=== PATIENT | female | born 1995 | race Asian ===

== ENCOUNTER 2018-07-13 13:39 | Emergency (ER) | payer OTHER ==
[2018-07-13 13:47] VITALS: BMI 26.5
[2018-07-13] MEDS ORDERED: ONDANSETRON *ODT* 4 MG TABLET SL ONE (14:05)
[2018-07-13] MEDS ORDERED: SODIUM CHLORIDE 1,000 ML IV STA (14:05)
--- NOTE | 2018-07-13 14:10 | PDOC ---
History of Present Illness - General Chief Complaint: Pain, Acute Stated Complaint: Pain, Acute Time Seen by Provider: 07/13/18 13:51 History Source: Patient Exam Limitations: No Limitations - History of Present Illness Initial Comments: 07/13/18 14:06 Pt is a 23yo f with PMH of asthma presenting to ED with complaints of urinary frequency with L sided flank pain that started yesterday. Pt says she felt like she had to urinate every 10 seconds. She states the pain in her back went away overnight but came back in the morning. Pain is an achy pain 15/10 radiates from L flank to L groin, constant, alleviated by sitting down. Pt admits to hot flashes, nausea, dysuria, urinary frequency. She denies hematuria, fevers, vaginal bleeding/discharge, abdominal pain, v/d/c, headaches. LMP was June 16, she is sexually active, denies history of STDs or prior kidney stones. PCP: [facility] PMH: asthma PSH: none Meds: albuterol inhaler social: denies allergies: denies Past History - Past Medical History Allergies/Adverse Reactions: Allergies Allergy/AdvReac Type Severity Reaction Status Date / Time No Known Allergies Allergy Verified 07/13/18 13:44 Home Medications: Ambulatory Orders Albuterol Sulfate Inhaler - [Ventolin Hfa Inhaler -] 1 - 2 inh PO QID 07/13/18 Oxycodone HCl/Acetaminophen [Percocet 5-325 mg Tablet] 1 tab PO Q6H #20 tablet MDD 4 tablets 07/13/18 Tamsulosin HCl [Flomax] 0.4 mg PO DAILY #7 capsule 07/13/18 Asthma: Yes COPD: No - Suicide/Smoking/Psychosocial Hx Smoking History: Never smoked Review of Systems - Review of Systems Constitutional: No: Fever, Weakness HEENTM: No: Eye Pain, Recent change in vision Respiratory: No: Cough, Shortness of Breath Cardiac (ROS): No: Chest Pain, Palpitations, Syncope ABD/GI: Yes: Nausea. No: Constipated, Diarrhea, Poor Appetite, Vomiting, Abdominal cramping, Tarry Stools : Yes: See HPI, Frequency, Flank Pain, Urgency. No: Dysuria, Hematuria Musculoskeletal: Yes: See HPI. No: Joint Pain, Muscle Weakness, Neck Pain Neurological: No: Headache, Numbness, Paresthesia, Tingling, Weakness *Physical Exam - Vital Signs Last Vital Signs Temp Pulse Resp BP Pulse Ox 98 F 80 22 H 111/81 98 07/13/18 13:46 07/13/18 13:46 07/13/18 13:46 07/13/18 13:46 07/13/18 13:46 - Physical Exam Comments: 07/13/18 14:13 pt sitting in chair, highly uncomfortable, holding L flank General Appearance: Yes: Nourished, Appropriately Dressed, Severe Distress HEENT: positive: EOMI, MATTY, Pharynx Normal, Hearing Grossly Normal. negative: Photophobia, Scleral Icterus (R), Scleral Icterus (L) Gastrointestinal/Abdominal: positive: Normal Bowel Sounds, Soft. negative: Distended, Guarding, Rebound, Tenderness Musculoskeletal: positive: CVA Tenderness (L). negative: CVA Tenderness (R), Decreased Range of Motion, Vertebral Tenderness Extremity: positive: Normal Capillary Refill. 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 Vitals: tachypnea at 22. normotensive, normocardic PE: L flank tenderness. No abdominal tenderness DDx: nephrolithiasis (septic v. obstructive v. nonobstructive), pyelonephritis, uti, High clinical suspicion for nephrolithiasis. Pt is highly uncomfortable, complaining of flank pain. Pyelo also on differential. UA, Ucx, Upreg ordered in triage. Will add on CBC, CMP, Zofran, IVF. Awaiting upreg. Will give Toradol if negative. If is negative will order spiral ct. If positive, will order ultrasound and perform pelvic exam. Will give pt Tylenol for pain if that is the case. -Low suspicion for ovarian cause of pain: TOA, torsion, ectopic given pt is not complaining of pelvic pain, vaginal bleeding/discharge. Low suspicion for abdominal causes: colitis, appendicitis cholecystitis given location of pain and lack of abdominal complaints other than nausea. 07/13/18 14:25 Upreg negative. Will give toradol and order spiral ct. 07/13/18 14:27 UA negative for infection, can rule out septic stone and pyelonephritis. 07/13/18 15:08 All labs wnl. Pt feeling better after Toradol. 3mm obstructing stone at L UVJ with mild hydroureter and stones in kidney. Called Dr. Tate, agreed with dc pt home with Flomax and pain control. Will see pt in office. Pt hemodynamically stable, afebrile, asymptomatic. safe for dc home. Pt agreed to plan and understood return precautions. *DC/Admit/Observation/Transfer Diagnosis at time of Disposition: Nephrolithiasis - Discharge Dispostion Disposition: HOME Condition at time of disposition: Improved - Prescriptions Prescriptions: Oxycodone HCl/Acetaminophen [Percocet 5-325 mg Tablet] 1 tab PO Q6H #20 tablet MDD 4 tablets Tamsulosin HCl [Flomax] 0.4 mg PO DAILY #7 capsule - Referrals Referrals: Elizabeth Villatoro MD [Primary Care Provider] - Steven Torre MD [Staff Physician] - - Patient Instructions Printed Discharge Instructions: DI for Kidney Stones Additional Instructions: You were seen here today for evaluation of flank pain. Your blood tests were normal. The CT scan showed that you have a stone The stone may take a couple days to pass. I have sent a prescription over to your pharmacy for pain; Percocet, please take if your pain is not well controlled by ibuprofen. You can take ibuprofen up to 600mg every 6 hours as needed for pain. I have also sent Flomax for you to take as well. Try to stay well hydrated! Drink lots of water, try to stay away from sodas and coffee for now. I recommend that you follow up with your doctor and a urologist within 1 week. You can call Dr. Malcolm and let him know that he spoke to Dr. Walton in the emergency room when you were here so that you can be scheduled to see him in the next few days. Come back to the emergency room if: your pain gets worse, you have a lot of blood in your urine, you start having abdominal pain or if any new concerning symptom develops. Thank you - Post Discharge Activity
[2018-07-13 14:13] LABS: URINE APPEARANCE SLCLOUDY; URINE BILIRUBIN NEGATIVE (<2.0 mg/dL); URINE COLOR LTYELLOW; URINE GLUCOSE (UA) NEGATIVE (NEGATIVE); URINE KETONE NEGATIVE (NEGATIVE); URINE LEUK ESTERASE NEGATIVE (NEGATIVE); URINE NITRITE NEGATIVE (NEGATIVE); URINE PROTEIN NEGATIVE (NEGATIVE); URINE UROBILINOGEN NEGATIVE mg/dL (0.2-1.0)
[2018-07-13 14:16] LABS: HCG,QUALITATIVE URINE Negative
[2018-07-13] MEDS ORDERED: KETOROLAC TROMETHAMINE 30 MG/1 ML VIAL IVPUSH ONE (14:18)
[2018-07-13 14:19] LABS: EPI CELLS RARE /HPF (FEW)
[2018-07-13] MEDS ORDERED: ONDANSETRON 4 MG/2 ML VIAL ONE (14:23)
[2018-07-13] MEDS ORDERED: KETOROLAC TROMETHAMINE 30 MG/1 ML VIAL ONE (14:23)
[2018-07-13 14:26] LABS: BASO % 0.9 % (0-2.0); EOS % 3.3 % (0-4.5); HEMATOCRIT 39.4 % (32.4-45.2); HEMOGLOBIN 12.8 GM/dL (10.7-15.3); LYMPH % 50.2 % (8-40); MCH 27.2 pg (25.7-33.7); MCHC 32.4 g/dl (32.0-36.0); MEAN CELL VOLUME 83.8 fl (80-96); MEAN PLT VOLUME 9.2 fl (7.5-11.1); MONO % 6.8 % (3.8-10.2); NEUT % 38.8 % (42.8-82.8); PLATELET COUNT 286 K/MM3 (134-434); RDW 13.6 % (11.6-15.6); WHITE BLOOD COUNT 8.6 K/mm3 (4.0-10.0)
[2018-07-13] MEDS ORDERED: ONDANSETRON 4 MG/2 ML VIAL IVPUSH ONE (14:26)
[2018-07-13 14:50] LABS: ALBUMIN 4.1 g/dl (3.4-5.0); ALK PHOS 54 U/L (45-117); ANION GAP 8 MMOL/L (8-16); BILIRUBIN,TOTAL 0.4 mg/dL (0.2-1); BLOOD UREA NITROGEN 12 mg/dL (7-18); CHLORIDE 106 mmol/L (98-107); CO2 25 mmol/L (21-32); CREATININE 0.6 mg/dL (0.55-1.3); GLUCOSE,RANDOM 88 mg/dL (74-106); SGOT/AST 19 U/L (15-37); SGPT/ALT 21 U/L (13-61); SODIUM 138 mmol/L (136-145); TOT PROT 7.7 g/dl (6.4-8.2)
--- NOTE | 2018-07-13 16:25 | PDOC ---
Attending Attestation - Resident Resident Name: Gia Walton - ED Attending Attestation I have performed the following: I have examined & evaluated the patient, The case was reviewed & discussed with the resident, I agree w/resident's findings & plan, Exceptions are as noted - HPI HPI: 07/13/18 16:16 The patient is a 23 year old female with a significant PMH of asthma who presents to the emergency department with nausea, dysuria, urinary frequency and left sided flank pain that started overnight. Patient states the left flank pain is radiating to the left groin and is better with moving around Patient denies any history of STDs or kidney stones. Denies vaginal DC. The patient denies fever, chills, nausea, vomit, diarrhea and constipation. Denies urgency or hematuria. Allergies: NKA Past surgical history: None reported. Social history: No reported alcohol, drug, or cigarette use. PCP: Dr. Villatoro - Physicial Exam PE: 07/13/18 16:17 GENERAL: Awake, alert, and fully oriented, in no acute distress HEAD: No signs of trauma EYES: PERRLA, EOMI, sclera anicteric, conjunctiva clear ENT: Auricles normal inspection, hearing grossly normal, nares patent, oropharynx clear without exudates. Moist mucosa NECK: Normal ROM, supple, no lymphadenopathy, JVD, or masses LUNGS: Breath sounds equal, clear to auscultation bilaterally. No wheezes, and no crackles HEART: Regular rate and rhythm, normal S1 and S2, no murmurs, rubs or gallops ABDOMEN: Soft, nontender, non distended, normoactive bowel sounds. No guarding , no rebound. No masses. No CVAT. EXTREMITIES: Normal range of motion, no edema. No clubbing or cyanosis. No cords, erythema, or tenderness NEUROLOGICAL: Normal speech, cranial nerves intact, 5/5 strength in all 4 extremities, normal sensation to light touch in all 4 extremities, normal gait, normal tone SKIN: Warm, Dry, normal turgor, no rashes or lesions noted. - Medical Decision Making 07/13/18 16:20 23yo F presents with L sided flank pain consistent with renal colic. UA with blood, no infection. CTAP with 3mm obstructing stone in L UVJ. Pain well controlled with toradol. Case discussed with Dr. Lechuga by Dr Walton, he will see her as outpt. I discussed the physical exam findings, ancillary test results and final diagnoses with the patient. I answered all of the patient's questions. The patient was satisfied with the care received and felt comfortable with the discharge plan and treatment plan. The patient will call their primary care physician within 24 hours to arrange follow-up and will return to the Emergency Department with any new, persistent or worsening symptoms.
[2018-07-13 16:56] VITALS: BP 118/85; PULSE 76; TEMP 98.1
== END 2018-07-13 16:56 | disposition home or self-care (01) ==
LOC: JER 13:39
PROC: 3E0333Z Introduction of Anti-inflammatory into Peripheral Vein, Percutaneous Approach (ICD-10-PCS; principal; 2018-07-13)
PROC: 3E033GC Introduction of Other Therapeutic Substance into Peripheral Vein, Percutaneous Approach (ICD-10-PCS; 2018-07-13)
PROC: 3E0337Z Introduction of Electrolytic and Water Balance Substance into Peripheral Vein, Percutaneous Approach (ICD-10-PCS; 2018-07-13)
DX: N20.0 Calculus of kidney (principal); J45.909 Unspecified asthma, uncomplicated
CPT/HCPCS: 36415; 74176; 80053; 81003; 81015; 84703; 85025; 87086; 99284-25; J7030

== ENCOUNTER 2019-01-02 23:33 | Emergency (ER) | payer OTHER ==
[2019-01-02 23:42] VITALS: BMI 37.5
[2019-01-03 01:34] LABS: HCG,QUALITATIVE URINE Negative
[2019-01-03 01:35] LABS: EPI CELLS 7.1 /HPF (0-5); URINE APPEARANCE CLEAR; URINE BACTERIA 309.3 /hpf (NEGATIVE); URINE BILIRUBIN NEGATIVE (NEGATIVE); URINE CASTS 5 /hpf (0-8); URINE COLOR YELLOW; URINE GLUCOSE (UA) NEGATIVE (NEGATIVE); URINE KETONE TRACE (NEGATIVE); URINE LEUK ESTERASE TRACE (NEGATIVE); URINE NITRITE NEGATIVE (NEGATIVE); URINE PROTEIN NEGATIVE (NEGATIVE); URINE RBC 3 /hpf (0-4); URINE WBC 3 /hpf (0-5)
--- NOTE | 2019-01-03 01:45 | PDOC ---
History of Present Illness - General Chief Complaint: Pain, Acute Stated Complaint: STOMACH PAIN Time Seen by Provider: 01/03/19 01:10 History Source: Patient - History of Present Illness Initial Comments: 01/03/19 01:40 23 year old female with right pelvic and right lower abdominal pain. patient reports that she started to have nausea with constipation 4 days ago now with diarrhea. reports feelings chills and pain radiating to RLQ and periumbilical area. denies urinary symptoms, uri symptoms. cough, dizziness, chest pain LMP: 09/2018 Past History - Past Medical History Allergies/Adverse Reactions: Allergies Allergy/AdvReac Type Severity Reaction Status Date / Time No Known Allergies Allergy Verified 07/13/18 13:44 Home Medications: Ambulatory Orders Albuterol Sulfate Inhaler - [Ventolin Hfa Inhaler -] 1 - 2 inh PO QID 07/13/18 Oxycodone HCl/Acetaminophen [Percocet 5-325 mg Tablet] 1 tab PO Q6H #20 tablet MDD 4 tablets 07/13/18 Tamsulosin HCl [Flomax] 0.4 mg PO DAILY #7 capsule 07/13/18 Asthma: Yes COPD: No - Suicide/Smoking/Psychosocial Hx Smoking History: Never smoked Hx Alcohol Use: No Drug/Substance Use Hx: No Review of Systems - Review of Systems Able to Perform ROS?: Yes Is the patient limited Maltese proficient: No Constitutional: Yes: Chills. No: Symptoms Reported, See HPI, Diaphoresis, Fever , Loss of Appetite, Malaise, Night Sweats, Weakness, Weight Stable, Unintentional Wgt. Loss, Unexplained wgt Loss, Other ABD/GI: Yes: Diarrhea, Nausea, Abdominal cramping. No: Symptoms Reported, See HPI, Abdominal Distended, Abd. Pain w/ defecation, Blood Streaked Bowels, Constipated, Difficulty Swallowing, Poor Appetite, Poor Fluid Intake, Rectal Bleeding, Vomiting, Indigestion, Tarry Stools, Other : No: Symptoms Reported, See HPI, Burning, Dysuria, Discharge, Frequency, Flank Pain, Hematuria, Incontinence, Pain, Urgency, Testicular Mass, Testicular Swelling, Lesions, Testicular Pain, Other *Physical Exam - Vital Signs Last Vital Signs Temp Pulse Resp BP Pulse Ox 98.3 F 76 20 118/68 100 01/02/19 23:39 01/02/19 23:39 01/02/19 23:39 01/02/19 23:39 01/02/19 23:39 - Physical Exam General Appearance: Yes: Appropriately Dressed Respiratory/Chest: positive: Lungs Clear, Normal Breath Sounds Cardiovascular: positive: Regular Rhythm, Regular Rate Gastrointestinal/Abdominal: positive: Normal Bowel Sounds, Tender (RLQ), Soft, Tenderness Musculoskeletal: positive: Normal Inspection Extremity: positive: Normal Capillary Refill, Normal Inspection, Normal Range of Motion Integumentary: positive: Normal Color, Dry, Warm Neurologic: positive: Fully Oriented, Alert, Normal Mood/Affect ED Treatment Course - LABORATORY CBC & Chemistry Diagram: 01/03/19 02:10 01/03/19 02:10 - ADDITIONAL ORDERS Additional order review: Laboratory Results 01/03/19 01:23 Urine HCG, Qual Negative - RADIOLOGY Radiology Studies Ordered: Category Date Time Status TRANSVAGINAL ULTRASOUND US [US] Stat Ultrasound 01/03/19 01:27 Ordered Progress Note - Progress Note Progress Note: A: abdominal pain P: TVUS: negative UA urine pain control IVF anti-nausea medication. Medical Decision Making - Medical Decision Making 01/03/19 02:00 TVUS: no acute findings. 01/03/19 05:00 CTAP negative. liekly gastroenteritis *DC/Admit/Observation/Transfer Diagnosis at time of Disposition: Abdominal pain Qualifiers: Abdominal location: right lower quadrant Qualified Code(s): R10.31 - Right lower quadrant pain - Discharge Dispostion Disposition: HOME - Referrals Referrals: Elizabeth Villatoro MD [Primary Care Provider] - - Patient Instructions Printed Discharge Instructions: Viral Gastroenteritis Additional Instructions: drink plenty of fluids including gatrorade start a BRAT ( bananas, rice apples toast) follow up with your doctor as soon as possible. return to the ER if symptoms worsen - Post Discharge Activity Forms/Work/School Notes: Back to Work
[2019-01-03] MEDS ORDERED: ACETAMINOPHEN 1000 MG/100 ML VIAL (NON FORMULARY) IVPB ONE (02:09)
[2019-01-03] MEDS ORDERED: SODIUM CHLORIDE 1,000 ML IV STA (02:09)
[2019-01-03] MEDS ORDERED: ONDANSETRON 4 MG/2 ML VIAL IVPB ONE (02:19)
[2019-01-03] MEDS ORDERED: ACETAMINOPHEN INJECTION 100 ML IVPB ONE (02:51)
[2019-01-03] MEDS ORDERED: ONDANSETRON 4 MG/2 ML VIAL ONE (02:52)
[2019-01-03 02:53] LABS: BASO % 0.3 % (0-2.0); EOS % 1.9 % (0-4.5); HEMATOCRIT 38.4 % (32.4-45.2); HEMOGLOBIN 12.8 GM/dL (10.7-15.3); LYMPH % 16.1 % (8-40); MCH 27.8 pg (25.7-33.7); MCHC 33.4 g/dl (32.0-36.0); MEAN CELL VOLUME 83.3 fl (80-96); MEAN PLT VOLUME 9.5 fl (7.5-11.1); MONO % 5.8 % (3.8-10.2); NEUT % 75.9 % (42.8-82.8); PLATELET COUNT 256 K/MM3 (134-434); RBC 4.61 M/mm3 (3.60-5.2); RDW 13.9 % (11.6-15.6)
[2019-01-03 03:16] LABS: ALBUMIN 3.9 g/dl (3.4-5.0); ALK PHOS 55 U/L (45-117); ANION GAP 5 MMOL/L (8-16); BILIRUBIN,TOTAL 0.4 mg/dL (0.2-1); BLOOD UREA NITROGEN 17 mg/dL (7-18); CALCIUM 8.8 mg/dL (8.5-10.1); CHLORIDE 106 mmol/L (98-107); CO2 26 mmol/L (21-32); CREATININE 0.5 mg/dL (0.55-1.3); GLUCOSE,RANDOM 101 mg/dL (74-106); LIPASE 98 U/L (73-393); POTASSIUM 4.1 mmol/L (3.5-5.1); SGOT/AST 16 U/L (15-37); SGPT/ALT 23 U/L (13-61); SODIUM 137 mmol/L (136-145); TOT PROT 7.6 g/dl (6.4-8.2)
[2019-01-03 05:19] VITALS: BP 120/68; PULSE 80; TEMP 98.2
== END 2019-01-03 05:23 | disposition home or self-care (01) ==
LOC: JER 23:33
PROC: 3E0337Z Introduction of Electrolytic and Water Balance Substance into Peripheral Vein, Percutaneous Approach (ICD-10-PCS; principal; 2019-01-02)
PROC: 3E033NZ Introduction of Analgesics, Hypnotics, Sedatives into Peripheral Vein, Percutaneous Approach (ICD-10-PCS; 2019-01-02)
PROC: 3E033GC Introduction of Other Therapeutic Substance into Peripheral Vein, Percutaneous Approach (ICD-10-PCS; 2019-01-02)
DX: K52.9 Noninfective gastroenteritis and colitis, unspecified (principal); R10.31 Right lower quadrant pain
CPT/HCPCS: 36415; 74177-TC; 76830-TC; 80053; 81003; 83690; 84703; 85025; 96361; 96374; 96375; 99282-25; J0131; J7030

== ENCOUNTER 2021-11-23 01:49 | Observation (INO) | payer OTHER ==
[2021-11-23] MEDS ORDERED: ALBUTEROL SO4 2.5/IPRATROPIUM 0.5 INH SOL 3 ML VIAL.NEB. NEB ONE ×2 (02:30→02:32)
[2021-11-23] MEDS ORDERED: MAGNESIUM SULF 50% (8.12 MEQ/2 ML-1 GM VIAL) IVPB ONE ×2 (02:31→06:14)
[2021-11-23] MEDS ORDERED: MAGNESIUM SULFATE IN WATER 2 GM/50 ML IVPB IVPB ONE (02:32)
[2021-11-23 02:58] LABS: BASO % 0.6 % (0-2.0); EOS % 5.2 % (0-4.5); HEMATOCRIT 32.6 % (32.4-45.2); HEMOGLOBIN 11.2 GM/dL (10.7-15.3); LYMPH % 23.4 % (8-40); MCH 27.9 pg (25.7-33.7); MCHC 34.2 g/dl (32.0-36.0); MEAN CELL VOLUME 81.6 fl (80-96); MEAN PLT VOLUME 9.2 fl (7.5-11.1); MONO % 5.8 % (3.8-10.2); PLATELET COUNT 243 10^3/uL (134-434); RDW 13.9 % (11.6-15.6); WHITE BLOOD COUNT 12.9 K/mm3 (4.0-10.0)
[2021-11-23 03:19] LABS: CALCIUM 8.5 mg/dL (8.5-10.1)
[2021-11-23 03:20] LABS: ALBUMIN 3.2 g/dl (3.4-5.0); BLOOD UREA NITROGEN 9.6 mg/dL (7-18)
[2021-11-23 03:22] LABS: CREATININE 0.5 mg/dL (0.55-1.3)
[2021-11-23 03:24] LABS: BILIRUBIN,TOTAL 0.2 mg/dL (0.2-1); TOT PROT 6.4 g/dl (6.4-8.2)
[2021-11-23] MEDS ORDERED: predniSONE 20 MG TABLET (UD) PO ONE (04:03)
[2021-11-23] MEDS ORDERED: predniSONE 20 MG TABLET (UD) ONE (04:09)
[2021-11-23] MEDS: ALBUTEROL SO4 0.083% IH SOL 2.5 MG/3 ML VIAL.NEB. NEB SCH ×7 (04:20→07:53)
[2021-11-23] MEDS ORDERED: ALBUTEROL SO4 2.5/IPRATROPIUM 0.5 INH SOL 3 ML VIAL.NEB. NEB PRN (06:13)
[2021-11-23] MEDS ORDERED: ALBUTEROL SO4 0.083% IH SOL 2.5 MG/3 ML VIAL.NEB. NEB ONE (06:40)
[2021-11-23] MEDS ORDERED: MAGNESIUM 1GM/D5W - 1 GM/100 ML IVPB IVPB ONE (07:50)
[2021-11-23] MEDS: MONTELUKAST NA 5 MG TAB.CHEW PO ONE ×2 (07:52→08:30)
[2021-11-23 08:56] LABS: PH,URINE 7.5 (5.0-8.0); URINE APPEARANCE CLEAR; URINE BILIRUBIN NEGATIVE (NEGATIVE); URINE COLOR YELLOW; URINE GLUCOSE (UA) NEGATIVE (NEGATIVE); URINE KETONE 2+ (NEGATIVE); URINE LEUK ESTERASE NEGATIVE (NEGATIVE); URINE NITRITE NEGATIVE (NEGATIVE); URINE PROTEIN NEGATIVE (NEGATIVE); URINE UROBILINOGEN 0.2 mg/dL (0.2-1.0)
[2021-11-23] MEDS ORDERED: methylPREDNISolone NA SUCC 40 MG/1 ML VIAL ONE (10:17)
[2021-11-23] MEDS: methylPREDNISolone NA SUCC 40 MG/1 ML VIAL IVPUSH SCH ×2 (10:21→17:35)
[2021-11-23 11:11] LABS: BASO % 0.3 % (0-2.0); EOS % 0.6 % (0-4.5); HEMATOCRIT 31.7 % (32.4-45.2); HEMOGLOBIN 10.7 GM/dL (10.7-15.3); LYMPH % 8.8 % (8-40); MCH 27.6 pg (25.7-33.7); MCHC 33.8 g/dl (32.0-36.0); MEAN CELL VOLUME 81.7 fl (80-96); MEAN PLT VOLUME 9.6 fl (7.5-11.1); MONO % 2.2 % (3.8-10.2); NEUT % 88.1 % (42.8-82.8); PLATELET COUNT 246 10^3/uL (134-434); RBC 3.88 M/mm3 (3.60-5.2); RDW 13.7 % (11.6-15.6)
[2021-11-23 11:39] LABS: CALCIUM 8.1 mg/dL (8.5-10.1)
[2021-11-23 11:41] LABS: MAGNESIUM 2.3 mg/dL (1.8-2.4)
[2021-11-23 11:43] LABS: CREATININE 0.5 mg/dL (0.55-1.3); PHOSPHOROUS 2.7 mg/dL (2.5-4.9)
[2021-11-23 11:44] LABS: BILIRUBIN,TOTAL 0.2 mg/dL (0.2-1); TOT PROT 6.1 g/dl (6.4-8.2)
[2021-11-23 11:48] LABS: BLOOD UREA NITROGEN 6.3 mg/dL (7-18)
[2021-11-23] MEDS ORDERED: MONTELUKAST NA 5 MG TAB.CHEW PO ONE (12:00)
[2021-11-23] MEDS: FLUTICASONE/SALMETEROL 100 MCG/50 MCG DISKUS IH SCH ×2 (12:25→21:48)
[2021-11-23 12:51] VITALS: BMI 38.6
[2021-11-23] MEDS: ACETAMINOPHEN 325 MG TABLET (FP) PO PRN (16:46)
[2021-11-23] MEDS: ALBUTEROL SO4 2.5/IPRATROPIUM 0.5 INH SOL 3 ML VIAL.NEB. NEB SCH (20:38)
[2021-11-24] MEDS: ACETAMINOPHEN 325 MG TABLET (FP) PO PRN (00:34)
[2021-11-24 07:08] VITALS: BP 108/58; PULSE 78; TEMP 98.5
[2021-11-24] MEDS: ALBUTEROL SO4 2.5/IPRATROPIUM 0.5 INH SOL 3 ML VIAL.NEB. NEB SCH ×3 (07:16→14:05)
[2021-11-24] MEDS ORDERED: methylPREDNISolone NA SUCC 40 MG/1 ML VIAL IVPUSH ONE (07:36)
[2021-11-24] MEDS ORDERED: ALBUTEROL SO4 HFA INHALER IH PRN (08:43)
[2021-11-24] MEDS: FLUTICASONE/SALMETEROL 100 MCG/50 MCG DISKUS IH SCH (09:15)
[2021-11-24 09:17] LABS: HEMATOCRIT 34.5 % (32.4-45.2); HEMOGLOBIN 11.3 GM/dL (10.7-15.3); MCH 27.4 pg (25.7-33.7); MCHC 32.8 g/dl (32.0-36.0); MEAN CELL VOLUME 83.4 fl (80-96); PLATELET COUNT 261 10^3/uL (134-434); RBC 4.13 M/mm3 (3.60-5.2); WHITE BLOOD COUNT 14.2 K/mm3 (4.0-10.0)
[2021-11-24 09:58] LABS: BLOOD UREA NITROGEN 6.8 mg/dL (7-18)
[2021-11-24 10:00] LABS: CALCIUM 8.5 mg/dL (8.5-10.1)
[2021-11-24] MEDS ORDERED: predniSONE 20 MG TABLET (UD) PO SCH (10:00)
[2021-11-24 10:01] LABS: MAGNESIUM 2.2 mg/dL (1.8-2.4)
[2021-11-24 10:04] LABS: CREATININE 0.5 mg/dL (0.55-1.3)
[2021-11-24 10:05] LABS: BILIRUBIN,TOTAL 0.4 mg/dL (0.2-1); TOT PROT 6.1 g/dl (6.4-8.2)
[2021-11-24 10:17] LABS: ALBUMIN 2.9 g/dl (3.4-5.0)
[2021-11-24 11:02] LABS: ANISOCYTOSIS 1+; MACROCYTOSIS 1+
[2021-11-24 11:04] LABS: PLATELET ESTIMATE ADEQUATE
[2021-11-24] MEDS ORDERED: MONTELUKAST NA 10 MG TABLET PO SCH (22:00)
[2021-11-24] MEDS ORDERED: MONTELUKAST NA 5 MG TAB.CHEW PO SCH (22:00)
== END 2021-11-24 14:41 | disposition home or self-care (01) ==
LOC: JER 01:49 → JERBED 05:22 → INTOOBSV 05:22 → UNDOADMOB 05:22 → OBSVTOIN 06:10 → INTOOBSV 06:10 → JERBED 11:17 → J7W 11:17 → JERBED 12:28 → J7W 12:28
PROVIDERS: ADMIT Internal Medicine; ATTEND Nurse Practitioner Acute Care
PROC: 3E0F7GC Introduction of Other Therapeutic Substance into Respiratory Tract, Via Natural or Artificial Opening (ICD-10-PCS; principal; 2021-11-23)
PROC: 3E033GC Introduction of Other Therapeutic Substance into Peripheral Vein, Percutaneous Approach (ICD-10-PCS; 2021-11-23)
DX: J45.909 Unspecified asthma, uncomplicated (principal); Z20.822 Contact with and (suspected) exposure to COVID-19; Z3A.16 16 weeks gestation of pregnancy; Z29.9 Encounter for prophylactic measures, unspecified; O26.892 Other specified pregnancy related conditions, second trimester
CPT/HCPCS: 36415; 80053; 81003; 83735; 84100; 85025; 93005; 93010; 94150; 94640; 96374; 96375; 96376; 99285-25; C9803; G0378; U0003; U0005

== ENCOUNTER 2023-08-17 03:56 | Day surgery (SDC) | payer OTHER ==
[2023-08-13 15:37] VITALS: BMI 35.1
[2023-08-17] MEDS ORDERED: BUPIVACAINE HCL/PF 0.25% (2.5MG/ML) 10 ML VIAL ONE (07:17)
[2023-08-17] MEDS ORDERED: PROPOFOL 40 ML ONE (07:40)
[2023-08-17] MEDS ORDERED: ALBUTEROL SO4 HFA INHALER IH ONE (07:42)
[2023-08-17] MEDS ORDERED: ROCURONIUM BROMIDE 50 MG/5 ML SYRINGE ONE ×2 (07:43→09:21)
[2023-08-17] MEDS ORDERED: SUCCINYLCHOLINE CHLORIDE 200 MG/10 ML SYRINGE ONE (07:43)
[2023-08-17] MEDS ORDERED: SUGAMMADEX SODIUM 200 MG/2 ML VIAL ONE ×2 (07:43→09:34)
[2023-08-17] MEDS ORDERED: FENTANYL CITRATE/PF 50 MCG/ML VIAL ONE ×6 (07:44→11:03)
[2023-08-17] MEDS ORDERED: MIDAZOLAM HCL 2 MG/2 ML SINGLE DOSE VIAL ONE (07:44)
[2023-08-17] MEDS ORDERED: ONDANSETRON 4 MG/2 ML VIAL ONE ×2 (07:51→11:33)
[2023-08-17] MEDS ORDERED: DEXAMETHASONE SOD PHOSPHATE 4 MG/1 ML VIAL ONE ×2 (07:51)
[2023-08-17] MEDS ORDERED: HEPARIN NA (PORCINE) 5,000 UNITS/ML 1ML VIAL ONE (08:14)
[2023-08-17] MEDS ORDERED: CEFOXITIN SODIUM 2 GM IVPB ONE (08:14)
[2023-08-17] MEDS ORDERED: cefOXitin SODIUM 1 GM VIAL (RESTRICTED TO ID) IVPB ONE (08:15)
[2023-08-17] MEDS ORDERED: BUPIVACAINE HCL/PF 0.25% (2.5MG/ML) 10 ML VIAL IJ ONE (08:32)
[2023-08-17] MEDS ORDERED: ONDANSETRON 4 MG/2 ML VIAL IVPUSH PRN (09:51)
[2023-08-17] MEDS ORDERED: diphenhydrAMINE HCL 25 MG CAPSULE (FP) PO ONE (12:21)
[2023-08-17 12:51] VITALS: RESP 18
[2023-08-17 14:47] VITALS: BP 99/62; PULSE 73; TEMP 97.8
== END 2023-08-17 14:49 | disposition home or self-care (01) ==
LOC: JASU-SURG 03:56
PROVIDERS: ATTEND Surgery
PROC: 0FT44ZZ Resection of Gallbladder, Percutaneous Endoscopic Approach (ICD-10-PCS; principal; 2023-08-17 08:00)
DX: K81.2 Acute cholecystitis with chronic cholecystitis (principal)
CPT/HCPCS: 81025; 86850; 86900; 86901; 88304-TC; 94760; J1644